=== PATIENT | female | born 1975 | race Caucasian/White ===

== ENCOUNTER 2016-08-22 11:09 | Outpatient (CLI) | payer MEDICAID ==
[2016-08-22 11:48] LABS: APPEARANCE,URINE SLIGHTLY-CLOUDY; BILIRUBIN,URINE NEGATIVE (NEGATIVE); GLUCOSE, URINE NEGATIVE (NEGATIVE); KETONES,URINE NEGATIVE (NEGATIVE); LEUKOCYTE ESTERASE,URINE LARGE (NEGATIVE); NITRITE,URINE NEGATIVE (NEGATIVE); PROTEIN,URINE NEGATIVE (NEGATIVE); URINE SPECIFIC GRAVITY 1.005; UROBILINOGEN,URINE NEGATIVE mg/dL (<2.0)
[2016-08-22 11:57] LABS: URINE BARBITURATES SCREEN NEGATIVE; URINE METHADONE SCREEN NEGATIVE; URINE OPIATES LOW NEGATIVE; URINE PHENCYCLIDINE SCREEN NEGATIVE
--- NOTE | 2016-08-22 12:00 | L&D Flow Sheet ---
LD Flowsheet Datetime Report Generated by CPN: 08/22/2016 12:00 Datetime: 08/22/2016 11:57 Uterine Activity Monitor Interventions for UA: [place] Adjusted (Sara Vitrano, RN) Assessment A Monitor Interventions for FHR: Ultrasound Adjusted (Sara Vitrano, RN) Datetime: 08/22/2016 11:56 Vaginal Exam Dilatation (cm): 1.0 (Sara Vitrano, RN) Effacement (%): 50 (Sara Vitrano, RN) Station: -4 (Sara Vitrano, RN) Exam by: R. Vitrano, RN (Sara Vitrano, RN) Datetime: 08/22/2016 11:55 Teaching Instructional Method: Verbal; Patient Instructed; Verbalized Understanding (Sara Vitrano, RN) Plan of Care: Plan of Care Discussed (Sara Vitrano, RN) Teaching Comments: Reviewed POC, encouraged PO hydration, all pt questions answered. (Sara Vitrano, RN) Datetime: 08/22/2016 11:52 Communication Communication Comments: Call to Arely Hernandez CNM. Reviewed EGA 33.5, , pt complaints, nursing assessment, pt history, VS, urine results, toco tracing, FHTs. Orders received to complete SVE, encourage PO hydration, and provider will come to unit to write pt prescription for UTI antibiotics. (Sara Cao RN) Datetime: 08/22/2016 11:32 NBP Sys/Alondra/Mean (mmHg): 114 (QS system process) : 76 (QS system process) : 89 (QS system process) Pulse: 109 (QS system process) Respirations: 16 (Sararené Cao RN) Frequency (min): Irregular (Sara Kiley, RN) Pain Pain Scale: 3 (Sara Cao RN) Pain Presence: Intermittent (Sara Cao RN) Pain Type: Contraction (Sara Cao RN) Pain Location: Abdomen (Sara Vitrano, RN) Pain Coping: Talking Through Contractions (Sara Vitrano, RN) Membrane Status: Intact (Sara Vitrano, RN) Vaginal Bleeding: None (Sara Vitrano, RN) Maternal Assessment Level of Consciousness: Fully Conscious (Sara Vitrano, RN) DTR's/Clonus: DTRs 2+; No Clonus (Sara Vitrano, RN) Headache: Denies (Sara Vitrano, RN) Breath Sounds, Left: Clear and Equal (Sara Vitrano, RN) Breath Sounds, Right: Clear and Equal (Sara Vitrano, RN) Nausea/Vomiting: Hx of Nausea/Vomiting (Annotations: Hx nausea) (Sara Vitrano, RN) RUQ Epigastric Pain: Denies (Sara Vitrano, RN) LaborFlag: Labor (QS system process) Datetime: 08/22/2016 11:30 Vital Signs Stage of : Labor (Sara Kiley, RN) Patient Care Patient Position/Activity: Left Tilt; Semi-Fowlers (Sara Cao RN) I/O Interventions: Clear Liquids Given (Sara Cao RN) Teaching Instructional Method: Verbal; Patient Instructed; Family/Support Person Instructed; Verbalized Understanding (Sara Cao RN) Plan of Care: Plan of Care Discussed (Sara Cao RN) Unit Routine: [place] to Room; [place]; Bed; Unit Personnel; Monitoring; Safety/Fall Risk Prevention; Bathroom Privileges (Sara Cao RN)
--- NOTE | 2016-08-22 12:42 | Non Stress Test Report ---
Non Stress Test Datetime Report Generated by CPN: 08/22/2016 12:42 DEMOGRAPHIC Test Number: 1 EGA NST: 33.5 INDICATION Indication for Study: Ordered by Provider MONITORING Monitor Explained: Monitor Explained; Test Explained; Patient Verbalized Understanding Time on Monitor: 08/22/2016 11:31 Time off Monitor: 08/22/2016 12:33 NST Duration: 62 NST INTERVENTIONS NST Interventions: PO Hydration Physician Notified NST: K. Hernandez, CNM BABY A: [id number] BABY A Movement : Present Contraction Frequency : Irregular FHR Baseline : 150 Accelerations : 15X15 Decelerations : None Variability : Moderate 6-25bpm NST Review: Meets Criteria for Reactive NST NST Review and Verified By : Layla Camp RNC NST Results: Reactive NST REPORT Report Trigger: Send Report
== END 2016-08-22 12:41 | disposition home or self-care (01) ==
LOC: LC 11:09
PROVIDERS: ATTEND Obstetrics & Gynecology
PROC: 4A1HXCZ Monitoring of Products of Conception, Cardiac Rate, External Approach (ICD-10-PCS; principal; 2016-08-22)
DX: O23.43 Unspecified infection of urinary tract in pregnancy, third trimester (principal); O09.523 Supervision of elderly multigravida, third trimester; O47.03 False labor before 37 completed weeks of gestation, third trimester; Z3A.33 33 weeks gestation of pregnancy
CPT/HCPCS: 59025; 80307; 81001

== ENCOUNTER 2016-09-22 20:08 | Outpatient (CLI) | payer MEDICAID ==
[2016-09-22 20:34] LABS: APPEARANCE,URINE CLOUDY; BILIRUBIN,URINE NEGATIVE (NEGATIVE); GLUCOSE, URINE NEGATIVE (NEGATIVE); KETONES,URINE 20 mg/dL (NEGATIVE); LEUKOCYTE ESTERASE,URINE LARGE (NEGATIVE); NITRITE,URINE NEGATIVE (NEGATIVE); PROTEIN,URINE NEGATIVE (NEGATIVE); URINE SPECIFIC GRAVITY 1.012; UROBILINOGEN,URINE NEGATIVE mg/dL (<2.0)
[2016-09-22 21:01] LABS: URINE BARBITURATES SCREEN NEGATIVE; URINE METHADONE SCREEN NEGATIVE; URINE OPIATES LOW NEGATIVE; URINE PHENCYCLIDINE SCREEN NEGATIVE
[2016-09-22] MEDS ORDERED: CEFTRIAXONE INJ 1000 MG VIAL IM ONE (21:10)
[2016-09-22] MEDS ORDERED: LIDOCAINE 1% INJ-PF (10 MG/ML) 30 ML SDV INJ ONE (21:10)
[2016-09-22] MEDS ORDERED: CEFTRIAXONE INJ 1000 MG VIAL ONE (21:16)
[2016-09-22] MEDS ORDERED: HYDROXYZINE PAMOATE 50 MG CAPSULE PO ONE (21:17)
[2016-09-22] MEDS ORDERED: LIDOCAINE 1% INJ-PF (10 MG/ML) 30 ML SDV ONE (21:17)
[2016-09-22] MEDS ORDERED: HYDROXYZINE PAMOATE 50 MG CAPSULE ONE (21:17)
--- NOTE | 2016-09-22 22:00 | Non Stress Test Report ---
Non Stress Test Datetime Report Generated by CPN: 09/22/2016 22:00 DEMOGRAPHIC EGA NST: 38.1 INDICATION Indication for Study: Ordered by Provider URINE RESULTS Urine Protein, NST: Negative Urine Ketones - NST: Positive Urine Glucose - NST: Negative Urine Blood - NST: Positive MONITORING Monitor Explained: Monitor Explained; Test Explained; Patient Verbalized Understanding Time on Monitor: 09/22/2016 20:28 Time off Monitor: 09/22/2016 21:45 NST Duration: 77 NST INTERVENTIONS NST Interventions: PO Hydration Physician Notified NST: Dr. Nelson BABY A: [id number] BABY A Movement : Present Contraction Frequency : irregular FHR Baseline : 140 Accelerations : 15X15 Decelerations : None Variability : Moderate 6-25bpm NST Review: Meets Criteria for Reactive NST NST Review and Verified By : LUDIN WuT Results: Reactive NST REPORT Report Trigger: Send Report
--- NOTE | 2016-09-23 01:54 | L&D Discharge Summary ---
OB Discharge Summary Datetime Report Generated by CPN: 09/23/2016 01:53 DISCHARGE DIAGNOSIS Diagnosis/Symptoms: False Labor; UTI Gestation: 38.1 Number of Babies in Womb: 1 Parity: 3 DIET/ACTIVITY/RESTRICTIONS Diet: Regular Activity: Normal Activity TEACHING/INSTRUCTIONS/REFERRALS Instructions Given To: Patient Instructions Understood: Patient Verbalized Understanding; Support Person Verbalized Understanding Referrals: None Educational Materials- Other: UTI; Kick Counts; PTL Care Notes DISCHARGE INFORMATION Discharged AMA: No Discharge Date/Time: 08/22/2016 12:41 Discharged To: Home Discharge Provider Name: Nelson Accompanied By: family Discharge Method: Ambulatory Condition: Stable FOLLOW UP INFORMATION Follow Up With: [facility] Follow Up On: As Scheduled Follow Up Phone Number: [facility] - Comments: pt educated on kick counts and early labor signs. pt instructed to returnt to hosptial for SROM, decreased fm, bleeding like a period or strong regular contractions
== END 2016-09-22 21:59 | disposition home or self-care (01) ==
LOC: LC 20:08
PROVIDERS: ATTEND Obstetrics & Gynecology
PROC: 4A1HXCZ Monitoring of Products of Conception, Cardiac Rate, External Approach (ICD-10-PCS; principal; 2016-09-22)
DX: O47.1 False labor at or after 37 completed weeks of gestation (principal); O23.43 Unspecified infection of urinary tract in pregnancy, third trimester; O09.523 Supervision of elderly multigravida, third trimester; Z3A.38 38 weeks gestation of pregnancy
CPT/HCPCS: 59025; 81005; 80307; J3490 ×2; J0696

== ENCOUNTER 2016-09-25 17:58 | Inpatient (IN) | payer MEDICAID ==
[2016-09-25] MEDS ORDERED: PENICILLIN G-K 5 MILLION UNIT VIAL ONE (18:21)
[2016-09-25] MEDS ORDERED: OXYTOCIN/NORMAL SALINE 20 UNIT/1,000 ML RTUINJ ONE (18:25)
[2016-09-25] MEDS ORDERED: LIDOCAINE 1% INJ-PF (10 MG/ML) 30 ML SDV ONE (18:25)
[2016-09-25] MEDS ORDERED: MISOPROSTOL 0.2 MG TABLET ONE (18:25)
[2016-09-25] MEDS ORDERED: OXYTOCIN 10 UNIT/ML VIAL ONE (18:26)
[2016-09-25 18:30] LABS: APPEARANCE,URINE SLIGHTLY-CLOUDY; BILIRUBIN,URINE NEGATIVE (NEGATIVE); GLUCOSE, URINE NEGATIVE (NEGATIVE); KETONES,URINE 20 mg/dL (NEGATIVE); LEUKOCYTE ESTERASE,URINE NEGATIVE (NEGATIVE); NITRITE,URINE NEGATIVE (NEGATIVE); PROTEIN,URINE NEGATIVE (NEGATIVE); URINE SPECIFIC GRAVITY 1.015
[2016-09-25 18:44] LABS: ABSOLUTE BASOPHILS # (AUTO) 0.1 10^3/uL (0.0-0.2); ABSOLUTE LYMPHOCYTES (AUTO) 2.8 10^3/uL (0.5-4.7); ABSOLUTE MONOCYTES (AUTO) 1.6 10^3/uL (0.1-1.4); ABSOLUTE NEUT (AUTO) 8.9 10^3/uL (1.7-8.2); EOSINOPHILS % (AUTO) 0.3 % (0-6); HEMATOCRIT 33.7 % (36.0-47.0); HGB HCT DIFFERENCE -0.7; LYMPHOCYTES % (AUTO) 21.1 % (13-45); MEAN CORPUSCULAR HEMOGLOBIN 27.4 pg (27.0-33.4); MEAN CORPUSCULAR HGB CONC 32.7 g/dL (32.0-36.0); MEAN CORPUSCULAR VOLUME 84 fl (80-97); MONOCYTES % (AUTO) 11.9 % (3-13); RED BLOOD COUNT 4.03 10^6/uL (3.72-5.28); RED CELL DISTRIBUTION WIDTH 14.1 % (11.5-14.0); SEGMENTED NEUTROPHILS % (AUTO) 65.7 % (42-78); WHITE BLOOD COUNT 13.5 10^3/uL (4.0-10.5)
[2016-09-25 18:48] LABS: URINE BARBITURATES SCREEN NEGATIVE; URINE METHADONE SCREEN NEGATIVE; URINE OPIATES LOW NEGATIVE; URINE PHENCYCLIDINE SCREEN NEGATIVE
[2016-09-25] MEDS ORDERED: MAG HYDROX/AL HYDROX/SIMETH SUSP 30 ML UDCUP ONE (18:58)
[2016-09-25] MEDS ORDERED: ACETAMINOPHEN WITH CODEINE #3 TABLET ONE (19:50)
[2016-09-25] MEDS ORDERED: IBUPROFEN 800 MG TABLET ONE (19:51)
[2016-09-25] MEDS ORDERED: LORATADINE 10 MG TABLET PO PRN (20:08)
[2016-09-25] MEDS ORDERED: PSEUDOEPHEDRINE HCL 30 MG TABLET PO PRN (20:09)
[2016-09-25] MEDS ORDERED: PROMETHAZINE HCL INJ 25 MG/1 ML VIAL IV PRN (20:09)
[2016-09-25] MEDS ORDERED: DIPHENHYDRAMINE HCL 25 MG CAPSULE PO PRN (20:09)
[2016-09-25] MEDS ORDERED: MAGNESIUM HYDROXIDE SUSP 30 ML UDCUP PO PRN (20:09)
[2016-09-25] MEDS ORDERED: OXYTOCIN/NORMAL SALINE 1,000 ML IV PRN (20:09)
[2016-09-25] MEDS ORDERED: DIPH/PERTUSS(ACELL)/TETANUS VAC/PF 0.5 ML SYR (>=10YO) IM PRN (20:09)
[2016-09-25] MEDS ORDERED: PROMETHAZINE HCL 25 MG TABLET PO PRN (20:09)
[2016-09-25] MEDS ORDERED: ACETAMINOPHEN WITH CODEINE #3 TABLET PO PRN (20:09)
[2016-09-25] MEDS ORDERED: MEASLES,MUMPS&RUBELLA VACC/PF 0.5 ML VIAL SUBCUT PRN (20:09)
[2016-09-25] MEDS ORDERED: GLYCERIN/WITCH HAZEL LEAF 1 EACH MED..PAD TP PRN (20:09)
[2016-09-25] MEDS ORDERED: PROMETHAZINE HCL 25 MG SUPP.RECT PR PRN (20:09)
[2016-09-25] MEDS ORDERED: BENZOCAINE/MENTHOL AEROSOL SPRAY 56 ML TOP PRN (20:09)
[2016-09-25] MEDS ORDERED: ACETAMINOPHEN 650 MG SUPP.RECT PR PRN (20:09)
[2016-09-25] MEDS ORDERED: DIBUCAINE 1% OINTMENT 28 GM TP PRN (20:09)
[2016-09-25] MEDS ORDERED: NA PHOS,M-B/NA PHOS,DI-BA (ADULT) 133 ML ENEMA PR PRN (20:09)
[2016-09-25] MEDS ORDERED: ZOLPIDEM TARTRATE 5 MG TABLET PO PRN (20:09)
[2016-09-25] MEDS ORDERED: (PENDING PHARMACY ID) (Omeprazole Magnesium [Prilosec Otc] 1 TAB) PO SCH (20:15)
--- NOTE | 2016-09-25 21:57 | Admission Physical ---
Datetime Report Generated by CPN: 09/25/2016 21:57 CURRENT ADMISSION Chief Complaint: Uterine Contractions Indication for Induction: Not Applicable Admit Plan: Admit to Unit; Initiate Labor Protocol ALLERGIES Medication Allergies: No Medication Allergies: No Known Allergies (08/22/2016) Medication Allergies: No Known Allergies (03/12/2013) Latex: No Latex Allergies Food Allergies: N/A Environmental Allergies: N/A OBSTETRICAL HISTORY EDC: 10/05/2016 00:00 : 6 Para: 3 Term: 3 : 0 SAB: 1 IAB: 1 Ectopic: 0 Livin Cesareans: 0 VBACs: 0 Multiple Births: 0 Gestational Diabetes: No Rh Sensitization: No Incompetent Cervix: No RIZAWN: No Infertility: No ART Treatment: No Uterine Anomaly: No IUGR: No Hx Previous C/S: No Macrosomia: No Hx Loss/Stillborn: No PIH: No Hx : No Placenta Previa/Abruption: No Depression/PP Depression: No PTL/PROM: No Post Hemorrhage: No Current Procedures: Ultrasound Obstetrical History Comments: G1:SAB G2: 1995 EAB G3: 1997 baby girl, 40 weeks, 12 hours labor, 7 lb 7 oz G4: 2002 baby boy, 38 weeks, 8 hours labor, 8 lb 3 oz G5: 2012 baby boy, 38 weeks G6: Current; AMA; Lapse in care 19-30 week (Annotations: Data stored by N on behalf of user) SEE RECORDS Alcohol: No Marijuana : No Cocaine: Yes Other Illicit Drugs: No Cigarettes: Former Smoker. [id number] MEDICAL HISTORY Diabetes: No Blood Transfusion: No Pulmonary Disease (Asthma, TB): No Breast Disease: No Hypertension: No Clarifier Operator Surgery: No Heart Disease: No Hosp/Surgery: Yes Autoimmune Disorder: No Anesthetic Complications: No Kidney Disease: No Abnormal Pap Smear: No Neuro/Epilepsy: No Psychiatric Disorders: No Other Medical Diseases: No Hepatitis/Liver Disease: No Significant Family History: No Varicosities/Phlebitis: No Trauma/Violence : No Thyroid Dysfunction: Yes Medical History Comments: Thyriod: Hypothyroid on Synthroid Sugery: Gall bladder removed 2010, Breast augmentation 2008, Childbirth INFECTIOUS HISTORY Gonorrhea: No Genital Herpes: No Chlamydia: No Tuberculosis: No Syphilis: No Hepatitis: No HIV/AIDS Exposure: No Rash or Viral Illness: No HPV: No PHYSICAL EXAM General: Normal HEENT: Normal Neurologic: Normal Thyroid: Normal Heart: Normal Lungs: Normal Breast: Deferred Back: Normal Abdomen: Normal Genitourinary Exam: Normal Extremities: Normal DTRs: Normal Pelvic Type: Adequate Vital Signs: Reviewed MEMBRANES Membranes: Ruptured FETUS A EGA: 38.4 FHR- Baseline: 140 Variability: Moderate 6-25bpm FHR Category: Category III PLANS FOR LABOR AND DELIVERY Labor and Delivery: None Pain Management: None Feeding Preference: Both Benefit of Breast Feed Discussed: Yes Circumcision: N/A INFORMED CONSENT Signature: with User ID: [email or web address]
--- NOTE | 2016-09-25 22:20 | Delivery Summary ---
Del Sum A-C Datetime Report Generated by CPN: 09/25/2016 22:20 DELIVERY PERSONNEL DELIVERY PERSONNEL: [phone] Delivery Doctor:: Jannet Hernandez MD Labor and Delivery Nurse:: Mely Tsang RN Labor and Delivery Nurse:: Pao Collado RN Outside Residential Sales Professional/SILVANA: Juancarlos Valladares CNA Additional Personnel: : Kasia Gomez RN MATERNAL INFORMATION Delivery Anesthesia: None Estimated Blood Loss (ml): 250 Maternal Complications: None LABOR SUMMARY EDC: 10/05/2016 00:00 No. Babies in Womb: 1 Attempted: No Labor Anesthesia: None LABOR INFORMATION Reason for Induction: Not Applicable Onset of Labor: 09/25/2016 17:00 Complete Dilatation: 09/25/2016 18:35 Oxytocin: N/A Group B Beta Strep: Positive Antibiotics # of Doses: 0 Antibiotics Time of Last Dose: 184 Name of Antibiotic Given: PCN Steroids Given: None Reason Steroids Not Administered: Not Applicable MEMBRANES Membranes Rupture Method: Artificial Rupture of Membranes: 09/25/2016 18:34 Length of Rupture (hr): 0.88 Amniotic Fluid Color: Clear Amniotic Fluid Amount: None Amniotic Fluid Odor: Normal STAGES OF LABOR Stage 1 hr: 1 Stage 1 min: 35 Stage 2 hr: 0 Stage 2 min: 52 Stage 3 hr: 0 Stage 3 min: 8 Total Time in Labor hr: 2 Total Time in Labor min: 35 VAGINAL DELIVERY Episiotomy: None Laceration Extension: N/A Laceration Type: None Laceration Repair: Not Applicable Sponge Count Correct: N/A; Vaginal Sweep Performed Sharps Count Correct: N/A CSECTION DELIVERY Primary Indication: N/A Secondary Indication: N/A CSection Incidence: N/A Labor: N/A Elective: N/A CSection Incision: N/A BABY A INFORMATION Infant Delivery Date/Time: 09/25/2016 19:27 Method of Delivery: Vaginal Born in Route : No : N/A Forceps: N/A Vacuum Extraction: N/A PRESENTATION/POSITION BABY A Presentation: Cephalic Cephalic Presentation: Vertex Vertex Position: Left Occipital Anterior Breech Presentation: N/A PLACENTA INFORMATION BABY A Placenta Delivery Time : 09/25/2016 19:35 Placenta Method of Delivery: Spontaneous Placenta Status: Delivered SCORES BABY A Heart Rate 1 min: >100 bpm Resp Effort 1 min: Good Cry Reflex Irritability 1 min: Cough or Sneeze or Pulls Away Muscle Tone 1 min: Active Motion Color 1 min: Body Coggon, Extremities Blue Resuscitation Effort 1 min: Tactile Stimulation SCORE 1 MIN: 9 Heart Rate 5 min: >100 bpm Resp Effort 5 min: Good Cry Reflex Irritability 5 min: Cough or Sneeze or Pulls Away Muscle Tone 5 min: Active Motion Color 5 min: Body Coggon, Extremities Blue SCORE 5 MIN: 9 INFANT INFORMATION BABY A Gestational Age at Delivery: 38.4 Gestational Status: Early Term- 37- 38.6 Weeks Infant Outcome : Liveborn Condition : Stable Sex: Female IDENTIFICATION BABY A Verification Date/Time: 09/25/2016 19:37 ID Band Number: [id number] Mother's Name Verified: Yes RN Verifying : SRay Prescott, RN Additional Verifying Personnel: US Sarmad/DESIGNATED BROKER WEIGHT/LENGTH BABY A Infant Birthweight (gm): 3295 Weight (lb): 7 Weight (oz): 4 Length (in): 19.75 Infant Length (cm): 50.17 CORD INFORMATION BABY A No. Cord Vessels: 3 Nuchal Cord : N/A Cord Blood Taken: Yes-For Eval (Mom's Blood Type - or O+) Infant Suction: Mouth; Nose ASSESSMENT BABY A Infant Complications: None Physical Findings at Delivery: Within Normal Limits Respirations: Appears Normal Skin to Skin: Yes Skin to Skin Time (min): 45 Business Education Professor/ALS Called : No Care By: R Marfheka RN Transferred To: Remains with Mother BABY B INFORMATION : N/A SIGNATURES Signature: with User ID: [email or web address]
[2016-09-25] MEDS: IBUPROFEN 800 MG TABLET PO SCH (22:21)
[2016-09-25] MEDS: FAMOTIDINE 20 MG TABLET PO SCH (22:22)
--- NOTE | 2016-09-26 00:56 | L&D Discharge Summary ---
OB Discharge Summary Datetime Report Generated by CPN: 09/26/2016 00:55 DISCHARGE DIAGNOSIS Diagnosis/Symptoms: False Labor; UTI Gestation: 38.4 Number of Babies in Womb: 1 Parity: 3 DIET/ACTIVITY/RESTRICTIONS Diet: Regular Activity: Normal Activity TEACHING/INSTRUCTIONS/REFERRALS Instructions Given To: Patient Instructions Understood: Patient Verbalized Understanding; Support Person Verbalized Understanding Referrals: None Educational Materials- Other: UTI; Kick Counts; PTL Care Notes DISCHARGE INFORMATION Discharged AMA: No Discharge Date/Time: 08/22/2016 12:41 Discharged To: Home Discharge Provider Name: Nelson Accompanied By: family Discharge Method: Ambulatory Condition: Stable FOLLOW UP INFORMATION Follow Up With: [facility] Follow Up On: As Scheduled Follow Up Phone Number: [facility] - Comments: pt educated on kick counts and early labor signs. pt instructed to returnt to hosptial for SROM, decreased fm, bleeding like a period or strong regular contractions
[2016-09-26] MEDS: LANSOPRAZOLE 15 MG TAB.RAP.DR PO SCH (05:26)
[2016-09-26] MEDS: IBUPROFEN 800 MG TABLET PO SCH ×3 (05:27→21:23)
[2016-09-26] MEDS: ACETAMINOPHEN WITH CODEINE #3 TABLET PO PRN ×2 (05:27→09:59)
[2016-09-26 07:05] LABS: HEMATOCRIT 30.9 % (36.0-47.0); HEMOGLOBIN 10.1 g/dL (12.0-15.5); HGB HCT DIFFERENCE -0.6; MEAN CORPUSCULAR HEMOGLOBIN 27.5 pg (27.0-33.4); MEAN CORPUSCULAR HGB CONC 32.8 g/dL (32.0-36.0); MEAN CORPUSCULAR VOLUME 84 fl (80-97); RED BLOOD COUNT 3.68 10^6/uL (3.72-5.28); WHITE BLOOD COUNT 15.8 10^3/uL (4.0-10.5)
--- NOTE | 2016-09-26 08:53 | PDOC PROGRESS REPORT ---
Subjective-OB Subjective: Post Delivery Day: 40 year old. Denies any needs at this time Doing well, sitting up eating bkf, scant lochia, breast and bottle, no c/o Physical Exam (OB) Vital Signs: Temp Pulse Resp BP Pulse Ox 97.5 F 99 18 130/82 H 99 09/26/16 03:55 09/26/16 03:55 09/26/16 03:55 09/26/16 03:55 09/26/16 03:55 Intake & Output 09/25/16 09/26/16 09/27/16 06:59 06:59 06:59 Weight 70.75 kg - Lochia Lochia Amount: Small 10-25 ml Lochia Color: Rubra/Red - Abdomen Description: Soft Hernia Present: No Fundal Description: Firm, Midline Fundal Height: u/u - u/2 Objective-Diagnostic Laboratory: 09/26/16 06:54 09/25/16 09/25/16 09/25/16 18:05 18:30 18:30 WBC 13.5 H RBC 4.03 Hgb 11.0 L Hct 33.7 L MCV 84 MCH 27.4 MCHC 32.7 RDW 14.1 H Plt Count 449 Seg Neutrophils % 65.7 Lymphocytes % 21.1 Monocytes % 11.9 Eosinophils % 0.3 Basophils % 1.0 Absolute Neutrophils 8.9 H Absolute Lymphocytes 2.8 Absolute Monocytes 1.6 H Absolute Eosinophils 0.0 Absolute Basophils 0.1 Urine Color YELLOW Urine Appearance SLIGHTLY-CLOUDY Urine pH 7.0 Ur Specific [place] 1.015 Urine Protein NEGATIVE Urine Glucose (UA) NEGATIVE Urine Ketones 20 H Urine Blood NEGATIVE Urine Nitrite NEGATIVE Ur Leukocyte Esterase NEGATIVE Blood Type O POSITIVE Antibody Screen NEGATIVE 09/26/16 06:54 WBC 15.8 H RBC 3.68 L Hgb 10.1 L Hct 30.9 L MCV 84 MCH 27.5 MCHC 32.8 RDW 14.0 Plt Count 387 Seg Neutrophils % Lymphocytes % Monocytes % Eosinophils % Basophils % Absolute Neutrophils Absolute Lymphocytes Absolute Monocytes Absolute Eosinophils Absolute Basophils Urine Color Urine Appearance Urine pH Ur Specific [place] Urine Protein Urine Glucose (UA) Urine Ketones Urine Blood Urine Nitrite Ur Leukocyte Esterase Blood Type Antibody Screen Assessment and Plan(PN) - Assessment and Plan (1) GBS (group B Streptococcus carrier), +RV culture, currently Is this a current diagnosis for this admission?: Yes (2) Hypothyroid Qualifiers: Hypothyroidism type: unspecified Qualified Code(s): E03.9 - Hypothyroidism, unspecified Is this a current diagnosis for this admission?: Yes (3) Advanced maternal age (AMA), 40 years or greater Is this a current diagnosis for this admission?: Yes (4) Normal vaginal delivery Is this a current diagnosis for this admission?: Yes - Time Spent with Patient Time with patient: Less than 15 minutes Medications reviewed and adjusted accordingly: Yes - Disposition Anticipated Discharge: Home Within: within 24 hours
[2016-09-26] MEDS: PRENATAL VITAMIN W-O CA NO5/FE FUMARATE/FA CAPSULE PO SCH (09:44)
[2016-09-26] MEDS: FERROUS SULFATE 325 MG TABLET PO SCH ×2 (09:44→17:15)
[2016-09-26] MEDS: SENNOSIDES/DOCUSATE 8.6-50 MG 1 EACH TABLET PO SCH (09:45)
[2016-09-26] MEDS: FAMOTIDINE 20 MG TABLET PO SCH ×2 (09:45→21:24)
[2016-09-26] MEDS: DOCUSATE SODIUM 100 MG CAPSULE PO SCH ×2 (09:47→17:15)
[2016-09-26] MEDS ORDERED: LEVOTHYROXINE SODIUM 0.1 MG TABLET PO SCH (10:00)
[2016-09-27] MEDS: IBUPROFEN 800 MG TABLET PO SCH (06:14)
[2016-09-27] MEDS: LANSOPRAZOLE 15 MG TAB.RAP.DR PO SCH (06:14)
[2016-09-27] MEDS ORDERED: LEVOTHYROXINE SODIUM 0.1 MG TABLET PO SCH (08:00)
[2016-09-27 09:03] VITALS: BP 126/92
[2016-09-27] MEDS: DOCUSATE SODIUM 100 MG CAPSULE PO SCH (09:35)
[2016-09-27] MEDS: FERROUS SULFATE 325 MG TABLET PO SCH (09:35)
[2016-09-27] MEDS: SENNOSIDES/DOCUSATE 8.6-50 MG 1 EACH TABLET PO SCH (09:35)
[2016-09-27] MEDS: PRENATAL VITAMIN W-O CA NO5/FE FUMARATE/FA CAPSULE PO SCH (09:35)
[2016-09-27] MEDS: FAMOTIDINE 20 MG TABLET PO SCH (09:35)
--- NOTE | 2016-09-27 10:42 | PDOC DISCHARGE SUMMARY ---
Final Diagnosis Discharge Date: 09/27/16 - Final Diagnosis (1) Advanced maternal age (AMA), 40 years or greater Is this a current diagnosis for this admission?: Yes (2) GBS (group B Streptococcus carrier), +RV culture, currently Is this a current diagnosis for this admission?: Yes (3) Hypothyroid Is this a current diagnosis for this admission?: Yes (4) Normal vaginal delivery Is this a current diagnosis for this admission?: Yes Discharge Data - Discharge Medication Home Medications: Levothyroxine Sodium [Synthroid 100 Mcg Tablet] 100 mcg PO DAILY 03/12/13 Loratadine [Claritin 10 mg Tablet] 1 tab PO DAILY PRN 08/22/16 Omeprazole Magnesium [Prilosec Otc] 1 tab PO DAILY 08/22/16 Vit/Iron Fumarate/FA [ Tablet] 1 tab PO DAILY 08/22/16 Reason(s) for Admission: Onset of Labor Procedures: NST, Ultrasound Intrapartum Procedure(s): Spontaneous Vaginal Delivery - Diagnosis Test Laboratory: Temp Pulse Resp BP Pulse Ox 98.2 F 80 14 126/92 H 99 09/27/16 10:27 09/27/16 10:27 09/27/16 10:27 09/27/16 10:27 09/27/16 10:27 09/25/16 09/25/16 09/26/16 18:05 18:30 06:54 RBC 4.03 3.68 L Hgb 11.0 L 10.1 L Hct 33.7 L 30.9 L Urine Opiates Screen NEGATIVE - Discharge information/Instructions Discharge Activity: Activity As Tolerated, Balance Activity w/Rest, No Lifting Over 10 Pounds, No Lifting/Push/Pulling, Pelvic Rest, No tub bath Discharge Diet: Regular Disposition: HOME, SELF-CARE Follow up with: [facility] in: 4
== END 2016-09-27 12:25 | disposition home or self-care (01) | DRG 775 ==
LOC: LC 17:58 → LR 18:21 → 2S 21:55
PROVIDERS: ADMIT Obstetrics & Gynecology; ATTEND Obstetrics & Gynecology
PROC: 10E0XZZ Delivery of Products of Conception, External Approach (ICD-10-PCS; principal; 2016-09-25)
PROC: 10907ZC Drainage of Amniotic Fluid, Therapeutic from Products of Conception, Via Natural or Artificial Opening (ICD-10-PCS; 2016-09-25)
DX: O99.284 Endocrine, nutritional and metabolic diseases complicating childbirth (principal); O99.824 Streptococcus B carrier state complicating childbirth; E03.9 Hypothyroidism, unspecified; Z3A.38 38 weeks gestation of pregnancy; Z37.0 Single live birth
CPT/HCPCS: 36415; 80307; 81005; 85025; 85027; 86592; 86850; 86900; 86901; J2540; J2590; J3490

== ENCOUNTER 2016-11-09 05:29 | Day surgery (SDC) | payer MEDICAID ==
[2016-11-08 11:14] LABS: HEMATOCRIT 36.6 % (36.0-47.0); HEMOGLOBIN 12.2 g/dL (12.0-15.5); MEAN CORPUSCULAR HGB CONC 33.3 g/dL (32.0-36.0); MEAN CORPUSCULAR VOLUME 84 fl (80-97); RED BLOOD COUNT 4.37 10^6/uL (3.72-5.28); RED CELL DISTRIBUTION WIDTH 19.2 % (11.5-14.0); WHITE BLOOD COUNT 5.2 10^3/uL (4.0-10.5)
[2016-11-08 11:14] LABS: APPEARANCE,URINE SLIGHTLY-CLOUDY; BILIRUBIN,URINE NEGATIVE (NEGATIVE); GLUCOSE, URINE NEGATIVE (NEGATIVE); KETONES,URINE NEGATIVE (NEGATIVE); LEUKOCYTE ESTERASE,URINE SMALL (NEGATIVE); NITRITE,URINE NEGATIVE (NEGATIVE); PROTEIN,URINE NEGATIVE (NEGATIVE); URINE SPECIFIC GRAVITY 1.002; UROBILINOGEN,URINE NEGATIVE mg/dL (<2.0)
[~2016-11-09 05:29] MED LIST: LACTATED RINGERS 1000 ML IV PRN; LIDOCAINE 0.5% INJ-PF (5 MG/ML) 50 ML SDV SUBCUT PRN
[2016-11-09] MEDS ORDERED: FENTANYL CITRATE INJ/PF 100 MCG/2 ML AMPUL ONE ×3 (06:25→09:12)
[2016-11-09] MEDS ORDERED: MIDAZOLAM 2 MG/2 ML INJ ONE ×2 (06:25→08:13)
[2016-11-09] MEDS ORDERED: MORPHINE SULFATE 10 MG/ML INJ ONE (06:26)
[2016-11-09] MEDS ORDERED: ACETAMINOPHEN 0 ML IV ONE (06:26)
[2016-11-09] MEDS ORDERED: PROPOFOL INJ 200 MG/20 ML VIAL IV ONE ×2 (06:26→08:14)
[2016-11-09] MEDS ORDERED: METOCLOPRAMIDE HCL INJ/PF 10 MG/2 ML SDV ONE (07:47)
[2016-11-09] MEDS ORDERED: FAMOTIDINE INJ/PF 20 MG/2 ML SDV IV ONE (07:47)
[2016-11-09] MEDS ORDERED: HYDROMORPHONE HCL INJ/PF 2 MG/ML AMPULE ONE (08:13)
[2016-11-09] MEDS ORDERED: ACETAMINOPHEN 100 ML IV ONE (08:14)
[2016-11-09] MEDS ORDERED: CEFAZOLIN INJ 1 GM VIAL ONE (08:36)
[2016-11-09] MEDS ORDERED: MORPHINE SULFATE 10 MG/ML INJ IV PRN (08:54)
[2016-11-09] MEDS ORDERED: DIPHENHYDRAMINE HCL 50 MG/ML VIAL IV PRN (08:54)
[2016-11-09] MEDS ORDERED: OXYCODONE-ACETAMINOPHEN 5-325 MG TABLET PO PRN ×4 (08:54→09:54)
[2016-11-09] MEDS ORDERED: FENTANYL CITRATE INJ/PF 100 MCG/2 ML AMPUL IV PRN ×3 (08:54)
[2016-11-09] MEDS ORDERED: PROMETHAZINE HCL INJ 25 MG/1 ML VIAL IV PRN ×2 (08:54)
[2016-11-09] MEDS ORDERED: MEPERIDINE HCL/PF INJ 25 MG/1 ML DISP.SYRIN IV PRN (08:54)
[2016-11-09] MEDS: FENTANYL CITRATE INJ/PF 100 MCG/2 ML AMPUL ONE ×3 (09:14→09:27)
[2016-11-09] MEDS ORDERED: MORPHINE SULFATE 10 MG/ML INJ IM PRN (09:52)
[2016-11-09] MEDS ORDERED: IBUPROFEN 800 MG TABLET PO PRN (09:53)
[2016-11-09 11:12] VITALS: BP 138/94
[2016-11-09] MEDS ORDERED: ROCURONIUM BROMIDE INJ 50 MG/5 ML VIAL IV ONE (14:22)
[2016-11-09] MEDS ORDERED: SUCCINYLCHOLINE CHLORIDE INJ 200 MG/10 ML VIAL ONE (14:22)
--- NOTE | 2016-12-19 10:30 | OPERATIVE REPORT E ---
Operative Report NAME: JOHN FRIAS : 1975 AGE: 41Y DATE OF SURGERY: ROOM: PREOPERATIVE DIAGNOSIS: Patient desires sterilization. POSTOPERATIVE DIAGNOSIS: Patient desires sterilization. OPERATION: Bilateral salpingectomy. SURGEON: Darryl Nelson D.O. BRANCH LEAD: None. ANESTHESIA: General endotracheal anesthesia. COMPLICATIONS: None. PATHOLOGY: Bilateral fallopian tubes. ESTIMATED BLOOD LOSS: Less than 25 mL. FINDINGS: Normal pelvic anatomy. PROCEDURE: The patient was taken to the operating where she was placed in the dorsal supine position upon the operating table. Her general endotracheal anesthesia was then administered. Once this was found to be adequate, she was placed in the dorsal lithotomy position in [facility]. She was then prepped and draped in the normal sterile fashion. An open-sided speculum was then placed inside the patient's vagina. The cervix was easily visualized and grasped on the anterior lip with a single-tooth tenaculum. An [place]-Woolley uterine manipulator was placed inside the uterus without difficulty. The single-tooth tenaculum and open-sided speculum were then removed from the patient's vagina. The surgeon then changed gloves. A 5-mm incision was made at the base of the patient's umbilicus where a 5 mm direct Optiview scope was passed through the incision into the peritoneal cavity. Once inside the peritoneal cavity, CO2 gas was turned on, and opening pressures were noted to be less than 5. The patient's abdomen was then allowed to fill with CO2 gas. A survey revealed a normal pelvic anatomy. Following this, a 5-mm port was placed in the left and right lower quadrants under direct visualization and without evidence of trauma or injury. Using the Harmonic scalpel the bilateral salpingectomy was performed with excellent hemostasis. Following this the patient's abdominal pressures were taken down to approximately 5, and all pedicle sites remained hemostasis. Following this all ports, instruments, and gas removed from the patient's abdomen. The skin incision was then closed with Dermabond. The uterine manipulator was then removed from the patient's vagina without difficulty. At this point in time the procedure was terminated. All sponge, lap, and needle counts were correct x2. Patient tolerated the procedure well. Patient was taken to recovery in stable condition. DICTATING PHYSICIAN: Darryl Nelson DO [id number] PHY#: [id number] ID: [id number] JOB#: [id number] ACCT: [id number] cc:Darryl Nelson D.O. >
== END 2016-11-09 11:22 | disposition home or self-care (01) ==
LOC: OROUT 05:29
PROVIDERS: ATTEND Obstetrics & Gynecology
PROC: 0UT74ZZ Resection of Bilateral Fallopian Tubes, Percutaneous Endoscopic Approach (ICD-10-PCS; principal; 2016-11-09 09:00)
DX: Z30.2 Encounter for sterilization (principal); K21.9 Gastro-esophageal reflux disease without esophagitis; E07.9 Disorder of thyroid, unspecified; Z79.899 Other long term (current) drug therapy
CPT/HCPCS: 36415 ×2; 84702; 85027; 81005; 88302 ×2; 58661; J2250; J0690; J3490; J3010; J2765; J1170; J0330; J2704; S0028; J0131; 840; J2270